=== PATIENT | female | born 1960 | race Caucasian/White ===

== ENCOUNTER 2016-12-02 21:05 | Emergency (ER) | payer SELFPAY ==
[~2016-12-02] VITALS: Ht 167.6 cm; Wt 68.8 kg
[~2016-12-02 21:05] MED LIST: ALPR0.25 PO; ENAL5TAB34 PO; GEMF600T PO; HCTZ PO; METO25TA35 PO; METO50TA82 PO
[2016-12-02] MEDS ORDERED: METOPROLOL TARTRATE 50 MG TABLET ONE (21:57)
[2016-12-02] MEDS ORDERED: LORazepam 1MG TABLET ONE (21:57)
[2016-12-02] MEDS ORDERED: METOPROLOL TARTRATE 25 MG TABLET PO SCH (22:00)
[2016-12-02] MEDS ORDERED: LORazepam 0.5MG TABLET PO ONE (22:00)
[2016-12-02 22:09] LABS: HEMOGLOBIN 11.9 g/dL (11.7-16.4)
[2016-12-02 22:22] LABS: ASPARTATE AMINO TRANSFERASE 18 U/L (15-37); BLOOD UREA NITROGEN 20 mg/dL (7-18)
[2016-12-02 22:27] LABS: IS PT STATUS REG ER OR PRE ER? YES
[2016-12-02] MEDS ORDERED: LISINOPRIL 20 MG TABLET PO ONE (23:00)
[2016-12-02 23:07] VITALS: BP 162/100
== END 2016-12-02 23:59 | disposition home or self-care (01) ==
LOC: ED 23:53
DX: I12.9 Hypertensive chronic kidney disease with stage 1 through stage 4 chronic kidney disease, or unspecified chronic kidney disease (principal); N18.9 Chronic kidney disease, unspecified
CPT/HCPCS: 36415; 80053; 84484; 85025; 93005

== ENCOUNTER 2016-12-08 18:55 | Emergency (ER) | payer SELFPAY ==
[~2016-12-08] VITALS: Ht 167.6 cm; Wt 69.5 kg
[2016-12-08] MEDS ORDERED: SODIUM CHLORIDE FLUSH 10ML SYR IVF ONE (21:00)
[2016-12-08] MEDS ORDERED: ASPIRIN 81 MG TABLET CHEW PO ONE (21:00)
[2016-12-08 21:49] LABS: BLOOD UREA NITROGEN 17 mg/dL (7-18)
[2016-12-08 22:02] VITALS: BP 148/88
[2016-12-08] MEDS ORDERED: ASPIRIN 81 MG TABLET CHEW ONE (22:08)
[2016-12-08] MEDS ORDERED: LORazepam 1MG TABLET PO ONE (22:30)
[2016-12-08] MEDS ORDERED: LORazepam 1MG TABLET ONE (22:33)
== END 2016-12-08 22:40 | disposition home or self-care (01) ==
LOC: ED 21:18
DX: R07.89 Other chest pain (principal); I10 Essential (primary) hypertension; F41.1 Generalized anxiety disorder; E87.1 Hypo-osmolality and hyponatremia; I50.40 Unspecified combined systolic (congestive) and diastolic (congestive) heart failure; Z87.891 Personal history of nicotine dependence
CPT/HCPCS: 36415; 71010; 80048; 82040; 83735; 83880; 84484; 85025; 85379; 93005; 93970